=== PATIENT | male | born 1970 | race African-American/Black ===

== ENCOUNTER 2024-10-02 17:08 | Inpatient (IN) | payer MEDICAID ==
[~2024-10-02] VITALS: Ht 180.3 cm; Wt 70.8 kg
[2024-10-02 17:09] VITALS: O2SAT 99
[2024-10-02] MEDS: TETRACAINE 0.5% OPHTH DROPS 4ML BOTHEYE STA (17:26)
[2024-10-02] MEDS: TIMOLOL MALEATE 0.5% OPHTH DROPS 5ML RIGHTEYE STA (17:27)
[2024-10-02] MEDS: BRIMONIDINE 0.2% OPHTH DROPS 5ML RIGHTEYE STA (17:27)
[2024-10-02] MEDS: PILOCARPINE HCL 2% OPHTH DROPS 15ML RIGHTEYE STA (17:29)
[2024-10-02] MEDS: ONDANSETRON HCL 4MG/2ML INJ IV ONE (17:53)
[2024-10-02] MEDS: MORPHINE SULFATE 4 MG/ML INJ (FOR IV/IM USE) IV ONE (17:53)
[2024-10-02 18:05] LABS: BASOPHILS % 0.4 % (0.0-2.0); EOSINOPHILS % 2.1 % (0.0-5.0); HEMATOCRIT. 37.2 % (42.0-52.0); HEMOGLOBIN. 12.3 g/dL (14.0-18.0); LYMPHOCYTES % 17.2 % (20.0-50.0); MEAN PLATELET VOLUME 8.9 fl (7.4-10.4); MONOCYTES % 6.8 % (2.0-8.0); NEUTROPHILS % 73.5 % (40.0-76.0); PLATELET 171 x1000/uL (130-400); RED BLOOD CELL COUNT 4.63 mill/uL (4.7-6.1); RED CELL DISTRIBUTION WIDTH 14.6 % (11.6-14.6)
[2024-10-02 18:18] LABS: CREATININE 1.8 mg/dL (0.6-1.3)
[2024-10-02 18:19] LABS: TROPONIN I HIGH SENSITIVITY 6 ng/L (3.0-53)
[2024-10-02 18:20] LABS: ASPARTATE AMINOTRANSFERASE 26 IU/L (<34); INR 1.0
[2024-10-02 18:21] LABS: BILIRUBIN DIRECT 0.2 mg/dL (<=3.0); BILIRUBIN TOTAL 1.0 mg/dL (0.1-1.0); PROTEIN TOTAL 7.3 g/dL (6.0-8.3); UREA NITROGEN BLOOD 21 mg/dL (9-23)
[2024-10-02] MEDS: ACETAZOLAMIDE SODIUM 500MG/VIAL IV STA (18:44)
[2024-10-02] MEDS: LABETALOL 5MG/ML 4ML INJ IV ONE (19:22)
[2024-10-02] MEDS: SODIUM CHLORIDE 0.9% 1,000 ML IV ONE (19:25)
[2024-10-02] MEDS: FLUORESCEIN SODIUM 1MG/STRIP RIGHTEYE ONE (19:44)
[2024-10-02] MEDS: HYDRALAZINE 20MG/ML VIAL IV ONE (21:24)
[2024-10-02] MEDS ORDERED: LOSA50TA41 PO (21:56)
[2024-10-02 21:57] VITALS: BP 174/96; PULSE 70; RESP 16; TEMP 37.252
[2024-10-02 22:00] VITALS: BP 174/96; PULSE 70; RESP 16; TEMP 37.2; O2SAT 98
[2024-10-02] MEDS ORDERED: MORPHINE SULFATE 2 MG/ML INJ (NOT FOR IM USE) IV PRN (22:00)
[2024-10-02] MEDS ORDERED: ZOLPIDEM TARTRATE 5MG TABLET PO PRN (22:00)
[2024-10-02] MEDS ORDERED: MAGNESIUM/ALUMINUM HYDROXIDE/SIMETHICONE 30ML UDC PO PRN (22:00)
[2024-10-02] MEDS ORDERED: ACETAMINOPHEN 325MG TABLET PO PRN (22:00)
[2024-10-02] MEDS: AMLODIPINE 5MG TABLET PO SCH (22:00)
[2024-10-02] MEDS ORDERED: ONDANSETRON HCL 4MG/2ML INJ IV PRN (22:00)
[2024-10-02] MEDS ORDERED: HYDROCODONE/ACETAMINOPHEN 5/325MG TABLET PO PRN (22:00)
[2024-10-02] MEDS ORDERED: DEXTROSE 50% WATER 50ML SYRINGE IV PRN (22:00)
[2024-10-02] MEDS ORDERED: NALOXONE HCL 0.4MG/ML VIAL IV PRN (22:15)
[2024-10-02] MEDS: CLONIDINE 0.1MG TABLET PO PRN (22:51)
[2024-10-02] MEDS: CEFTRIAXONE 1GM/50ML 50 ML IV SCH (22:52)
[2024-10-02] MEDS: SODIUM CHLORIDE 0.9% 1,000 ML IV SCH (22:52)
[2024-10-03] VITALS: BP 152/86; PULSE 60; RESP 17; TEMP 36.5; O2SAT 98
[2024-10-03] MEDS: PREDNISOLONE ACETATE 1% OPHTH DROPS 5ML RIGHTEYE SCH (00:51)
[2024-10-03 00:53] LABS: TROPONIN I HIGH SENSITIVITY 6 ng/L (3.0-53)
[2024-10-03 04:00] VITALS: BP 107/62; PULSE 64; RESP 18; TEMP 36.6; O2SAT 98
[2024-10-03] MEDS: BLOOD SUGAR DIAGNOSTIC STRIP TEST SCH (06:45)
[2024-10-03] MEDS: INSULIN LISPRO 100 UNITS/ML SUBCUT SCH (07:15)
[2024-10-03 07:52] LABS: BASOPHILS % 0.2 % (0.0-2.0); EOSINOPHILS % 0.1 % (0.0-5.0); HEMATOCRIT. 36.6 % (42.0-52.0); HEMOGLOBIN. 12.0 g/dL (14.0-18.0); LYMPHOCYTES % 16.0 % (20.0-50.0); MEAN PLATELET VOLUME 9.3 fl (7.4-10.4); MONOCYTES % 7.8 % (2.0-8.0); NEUTROPHILS % 75.9 % (40.0-76.0); PLATELET 169 x1000/uL (130-400); RED BLOOD CELL COUNT 4.49 mill/uL (4.7-6.1); RED CELL DISTRIBUTION WIDTH 14.5 % (11.6-14.6)
[2024-10-03 08:00] VITALS: BP 108/59; PULSE 68; RESP 18; TEMP 36.6; O2SAT 100
[2024-10-03 08:12] LABS: TROPONIN I HIGH SENSITIVITY 8 ng/L (3.0-53)
[2024-10-03 08:17] LABS: CREATININE 2.1 mg/dL (0.6-1.3)
[2024-10-03 08:18] LABS: UREA NITROGEN BLOOD 28 mg/dL (9-23)
[2024-10-03 08:28] LABS: CLARITY URINE CLEAR (CLEAR); COLOR URINE YELLOW (YELLOW); GLUCOSE URINE 3+ (NEGATIVE); KETONES URINE NEGATIVE (NEGATIVE); LEUKOCYTE ESTERASE URINE NEGATIVE (NEGATIVE); NITRITE URINE NEGATIVE (NEGATIVE); OCCULT BLOOD URINE NEGATIVE (NEGATIVE); PH URINE 7.5 (4.5-8.0); PROTEIN URINE 2+ (NEGATIVE); SPECIFIC GRAVITY URINE 1.014 (1.005-1.030); UROBILINOGEN URINE 0.2 E.U./dL (0.2-1.0)
[2024-10-03 08:39] LABS: *AMPHETAMINES SCREEN URINE NEGATIVE (NEGATIVE)
[2024-10-03 08:40] LABS: *BARBITURATES SCREEN URINE NEGATIVE (NEGATIVE); *BENZODIAZEPINES SCREEN URINE NEGATIVE (NEGATIVE); *COCAINE SCREEN URINE NEGATIVE (NEGATIVE); CANNABINOID URINE SCREEN NEGATIVE (NEGATIVE); ECSTASY MDMA SCREEN URINE NEGATIVE (NEGATIVE); METHADONE URINE SCREEN NEGATIVE (NEGATIVE); OPIATES URINE SCREEN PRESUMPTIVE POSITIVE (NEGATIVE); PHENCYCLIDINE URINE SCREEN NEGATIVE (NEGATIVE)
[2024-10-03] MEDS: DOCUSATE SODIUM 100MG CAPSULE PO SCH (09:47)
[2024-10-03] MEDS: PANTOPRAZOLE SODIUM 40 MG/VIAL IV SCH (09:47)
[2024-10-03] MEDS: ENOXAPARIN 30MG/0.3ML SYR SUBCUT SCH (09:48)
[2024-10-03] MEDS: CIPROFLOXACIN 0.3% OPHTH SOLN 2.5ML RIGHTEYE SCH (09:49)
[2024-10-03 10:03] LABS: RBC URINE 0-2 /hpf (0-2); SQUAMOUS EPITHELIAL CELL URINE RARE /lpf (RARE/1+)
[2024-10-03 10:04] LABS: BACTERIA URINE NONE SEEN; WBC URINE 0-2 /hpf (0-2)
[2024-10-03 12:00] VITALS: BP 97/58; PULSE 60; RESP 18; TEMP 36.4; O2SAT 100
[2024-10-03 16:00] VITALS: BP 132/67; PULSE 63; RESP 18; TEMP 36.7; O2SAT 98
[2024-10-03] MEDS ORDERED: ACET250T26 GT (16:32)
[2024-10-03 20:00] VITALS: BP 114/63; PULSE 56; RESP 16; TEMP 36.5; O2SAT 97
[2024-10-04] VITALS: BP 119/66; PULSE 52; RESP 18; TEMP 36.4; O2SAT 96
[2024-10-04 04:00] VITALS: BP 112/65; PULSE 50; RESP 17; TEMP 36.4; O2SAT 97
[2024-10-04 07:35] LABS: BASOPHILS % 0.5 % (0.0-2.0); EOSINOPHILS % 2.7 % (0.0-5.0); HEMATOCRIT. 40.2 % (42.0-52.0); HEMOGLOBIN. 13.0 g/dL (14.0-18.0); LYMPHOCYTES % 35.7 % (20.0-50.0); MEAN PLATELET VOLUME 9.3 fl (7.4-10.4); MONOCYTES % 8.1 % (2.0-8.0); NEUTROPHILS % 53.0 % (40.0-76.0); PLATELET 189 x1000/uL (130-400); RED BLOOD CELL COUNT 4.91 mill/uL (4.7-6.1); RED CELL DISTRIBUTION WIDTH 14.8 % (11.6-14.6)
[2024-10-04 07:45] LABS: TROPONIN I HIGH SENSITIVITY 7.0 ng/L (3.0-53)
[2024-10-04 07:46] LABS: TRIGLYCERIDE 117 mg/dL (0-150)
[2024-10-04 07:47] LABS: CREATININE 2.2 mg/dL (0.6-1.3); LDL CHOLESTEROL 128 mg/dL (5-100); UREA NITROGEN BLOOD 29.0 mg/dL (9-23)
[2024-10-04 08:00] VITALS: BP 129/78; PULSE 57; RESP 18; TEMP 36.2; O2SAT 97
[2024-10-04] MEDS: AMLODIPINE 2.5MG TABLET PO SCH (10:19)
[2024-10-04] MEDS: MAGNESIUM OXIDE 400MG TABLET PO SCH (11:09)
[2024-10-04] MEDS: MAGNESIUM 2 G PREMIX 50 ML IV SCH (11:09)
[2024-10-04 12:00] VITALS: BP 132/74; PULSE 70; RESP 18; TEMP 36.7; O2SAT 99
[2024-10-04 13:15] LABS: CREATININE 2.2 mg/dL (0.6-1.3); UREA NITROGEN BLOOD 28.0 mg/dL (9-23)
[2024-10-04] MEDS: PREDNISOLONE ACETATE 1% OPHTH DROPS 5ML RIGHTEYE SCH (14:00)
[2024-10-04] MEDS: CIPROFLOXACIN 0.3% OPHTH SOLN 2.5ML RIGHTEYE SCH (14:00)
[2024-10-04] MEDS: DORZOLAM/TIMOLOL 2%/0.5% OPHTH DROPS 10ML BOTHEYE SCH (15:00)
[2024-10-04] MEDS: ATORVASTATIN CALCIUM 10MG TABLET PO SCH (17:16)
[2024-10-04 20:00] VITALS: BP 143/77; PULSE 60; RESP 17; TEMP 36.6; O2SAT 99
[2024-10-04] MEDS: BRIMONIDINE 0.2% OPHTH DROPS 5ML BOTHEYE SCH (21:00)
[2024-10-04] MEDS: LATANOPROST 0.005% OPHTH DROPS 2.5ML EACHEYE SCH (21:25)
[2024-10-05] VITALS: BP 133/79; PULSE 61; RESP 16; TEMP 36.5; O2SAT 98
[2024-10-05 04:00] VITALS: BP 132/75; PULSE 63; RESP 17; TEMP 36.7; O2SAT 100
[2024-10-05 07:07] LABS: BASOPHILS % 0.7 % (0.0-2.0); EOSINOPHILS % 3.2 % (0.0-5.0); HEMATOCRIT. 38.8 % (42.0-52.0); HEMOGLOBIN. 12.8 g/dL (14.0-18.0); LYMPHOCYTES % 38.0 % (20.0-50.0); MEAN PLATELET VOLUME 9.2 fl (7.4-10.4); MONOCYTES % 10.2 % (2.0-8.0); NEUTROPHILS % 47.9 % (40.0-76.0); PLATELET 191 x1000/uL (130-400); RED BLOOD CELL COUNT 4.78 mill/uL (4.7-6.1); RED CELL DISTRIBUTION WIDTH 14.2 % (11.6-14.6)
[2024-10-05 07:35] LABS: CREATININE 2.3 mg/dL (0.6-1.3); UREA NITROGEN BLOOD 31.0 mg/dL (9-23)
[2024-10-05 08:00] VITALS: BP 122/80; PULSE 57; RESP 16; TEMP 36.8; O2SAT 98
[2024-10-05 12:00] VITALS: BP 132/85; PULSE 67; RESP 16; TEMP 36.6; O2SAT 99
[2024-10-06] MEDS ORDERED: FAMOTIDINE 20MG/2ML VIAL IV SCH (09:00)
== END 2024-10-05 16:12 | disposition left against medical advice (07) | DRG 199 ==
LOC: ER 17:08 → 5WST 21:01 → EDBEDREQ 21:16 → EDBEDREQTM 21:16 → ENRESERV 21:33
PROVIDERS: ADMIT Internal Medicine; ATTEND Internal Medicine
DX: I16.9 Hypertensive crisis, unspecified (principal); N17.9 Acute kidney failure, unspecified; E11.22 Type 2 diabetes mellitus with diabetic chronic kidney disease; I95.9 Hypotension, unspecified; N18.9 Chronic kidney disease, unspecified; I12.9 Hypertensive chronic kidney disease with stage 1 through stage 4 chronic kidney disease, or unspecified chronic kidney disease; E78.5 Hyperlipidemia, unspecified; H53.8 Other visual disturbances; H54.40 Blindness, one eye, unspecified eye; H40.89 Other specified glaucoma; Z79.84 Long term (current) use of oral hypoglycemic drugs; Z79.899 Other long term (current) drug therapy; Z91.81 History of falling
CPT/HCPCS: 36415; 71045; 76770; 80048; 80061; 80076; 80305; 81003; 82962; 83036; 83735; 83880; 84443; 84484; 85025; 93005; 93306; 93970; 99291; J0360; J0696; J1120; J1650; J1815; J2270; J2405; J2470; J3475; J3490; J7030